=== PATIENT | female | born 1980 | race Caucasian/White ===

== ENCOUNTER → 2016-11-11 | Day surgery (SDC) | payer OTHER ==
[~2016-11-11] VITALS: Ht 165.1 cm; Wt 70.3 kg
[~2016-11-11] MED LIST: ACETAMINOPHEN 650 MG SUPP As Ordered ONE; ACETAMINOPHEN 650 MG SUPP PR ONE; BUPIVACAINE HCL 0.5% 30 ML VIAL As Ordered ONE; DOXY100C37 PO; GABA-283 PO; GABA600T PO; HYDROmorphone HCL 1 MG/ML SYRINGE (J1170) IV PRN; IBUP80TA PO; LIDOCAINE 2% INJ 100 MG/5 ML SDV (FOR ANES.) As Ordered ONE; LR 1,000 ML IV SCH; MIDAZOLAM INJ 2 MG/2 ML VIAL (J2250) As Ordered ONE; NORC1TAB4 PO; NS 1,000 ML IV SCH; ONDANSETRON 4MG/2ML VIAL (J2405) As Ordered ONE; ONDANSETRON 4MG/2ML VIAL (J2405) IV PRN; PERCOCET 5MG/325MG TAB PO PRN; PROPOFOL 200 MG/20 ML VIAL As Ordered ONE; ROCURONIUM BROMIDE 50 MG/5 ML VIAL/SYRINGE As Ordered ONE; SODIUM CHLORIDE 0.9% 1000 ML IV SCH; dexameTHASONE 4 MG/ML 1ML VIAL (J1100) As Ordered ONE; fentaNYL 100 MCG/2 ML INJECTION (J3010) IV PRN; fentaNYL 250 MCG/5 ML INJECTION (J3010) As Ordered ONE
[2016-11-11 09:21] LABS: MEAN CORPUSCULAR HEMOGLOBIN 30.6 pg (27.0-33.0); MEAN CORPUSCULAR HGB CONC 33.3 g/dl (32.0-36.5); MEAN CORPUSCULAR VOLUME 91.7 fl (80.0-96.0); RED CELL DISTRIBUTION WIDTH 12.3 % (11.5-14.5); WHITE BLOOD COUNT 11.2 K/mm3 (4.0-10.0)
[2016-11-11 09:41] LABS: ANION GAP 6 MEQ/L (8-16); BLOOD UREA NITROGEN 12 MG/DL (7-18); CALCIUM LEVEL 8.9 MG/DL (8.5-10.1); CARBON DIOXIDE LEVEL 30 MEQ/L (21-32); CHLORIDE LEVEL 103 MEQ/L (98-107); CREATININE FOR GFR 1.02 MG/DL (0.55-1.02); GLOMERULAR FILTRATION RATE > 60.0 (>60); GLUCOSE, FASTING 83 MG/DL (70-105); HCG, SERUM QUANTITATIVE < 1.0 MIU/ML; SODIUM LEVEL 139 MEQ/L (136-145)
[2016-11-11 12:33] VITALS: BP 126/79
--- NOTE | 2016-11-17 17:44 | RO ---
DATE OF PROCEDURE: 11/11/2016 PREOPERATIVE DIAGNOSIS: Satisfied parity, chronic pelvic pain. POSTOPERATIVE DIAGNOSIS: Satisfied parity, chronic pelvic pain. OPERATION PROPOSED: Operative laparoscopy, bilateral salpingectomy. OPERATION PERFORMED: Diagnostic laparoscopy, bilateral salpingectomy. SURGEON: Dr. Austin Latham PROCESSING ARCHIVIST: Ashlyn ANESTHESIA: General plus local anesthetic for intraperitoneal procedures. ESTIMATED BLOOD LOSS: Less than 10 mL. DESCRIPTION OF PROCEDURE: Under adequate anesthesia, prepped and draped in a lithotomy position, Araya catheter, bladder draining clear urine, acetaminophen suppository 1300 mg per rectum, sequentials on board, no antibiotics required. Time-out performed. Weighted speculum in vagina, single tooth tenaculum on the anterior lip of the cervix. There was some degree of cervical uterine prolapse. No evidence of cystourethral, rectal or enterocele. Reprepping and draping small subumbilical incision was made. Direct entry into the abdomen. No evidence of perforation, hemorrhage or bleeding. CO2 gas was attached. Panoramic review. The right upper quadrant was normal, left upper quadrant was normal. The uterus was midline, anteverted, anteflexed. Anterior cul-de-sac at the bladder area a few staining areas of peritoneum and in the posterior cul-de-sac a few staining areas of the peritoneum, suggesting possible very early stage of endometriosis. There was one clear drop spot of endometriosis. The rest of the examination was unremarkable, the tubes were normal. The ovaries were normal. The appendiceal site was normal. The cul-de-sac was clear. Everything was mobile. A 5 mm port was on the right side, a 5 mm port on the left side. Bilateral salpingectomy was performed with the NovaSure. Each tube was sent to pathology under separate cover. Good hemostasis was acquired. 250 mL of normal saline were left in the abdomen, deflating to 4 mm of pressure. The two side ports were removed, the mainstem port was removed. No evidence of active bleeding. The patient had #3-0 Vicryl stitches in all three sites. The Araya catheter and the instruments in the uterus were removed. Our recommendation is either doing nothing or the possibility of pelvic diathermy with PT, or a short course of 3 months with Depo Lupron. This will be discussed with the patient at postoperative check. Copy To: Tash Hurst OB
== END ==
LOC: M SDC 08:53
PROVIDERS: ATTEND Obstetrics & Gynecology
DX: Z30.2 Encounter for sterilization (principal); M51.9 Unspecified thoracic, thoracolumbar and lumbosacral intervertebral disc disorder; M54.5 Low back pain; Z79.899 Other long term (current) drug therapy
CPT/HCPCS: 36415; 58670; 80048; 84702; 85027; 88302; J1100; J2250; J2405; J3010

== ENCOUNTER 2017-01-12 08:06 | Emergency (ER) | payer OTHER ==
[~2017-01-12] VITALS: Ht 165.1 cm; Wt 65.9 kg
[~2017-01-12 08:06] MED LIST changes: -ACETAMINOPHEN 650 MG SUPP As Ordered ONE; -ACETAMINOPHEN 650 MG SUPP PR ONE; -BUPIVACAINE HCL 0.5% 30 ML VIAL As Ordered ONE; -DOXY100C37 PO; -GABA-283 PO; -HYDROmorphone HCL 1 MG/ML SYRINGE (J1170) IV PRN; -IBUP80TA PO; -LIDOCAINE 2% INJ 100 MG/5 ML SDV (FOR ANES.) As Ordered ONE; -LR 1,000 ML IV SCH; -MIDAZOLAM INJ 2 MG/2 ML VIAL (J2250) As Ordered ONE; -NORC1TAB4 PO; -NS 1,000 ML IV SCH; -ONDANSETRON 4MG/2ML VIAL (J2405) As Ordered ONE; -ONDANSETRON 4MG/2ML VIAL (J2405) IV PRN; -PERCOCET 5MG/325MG TAB PO PRN; -PROPOFOL 200 MG/20 ML VIAL As Ordered ONE; -ROCURONIUM BROMIDE 50 MG/5 ML VIAL/SYRINGE As Ordered ONE; -SODIUM CHLORIDE 0.9% 1000 ML IV SCH; -dexameTHASONE 4 MG/ML 1ML VIAL (J1100) As Ordered ONE; -fentaNYL 100 MCG/2 ML INJECTION (J3010) IV PRN; -fentaNYL 250 MCG/5 ML INJECTION (J3010) As Ordered ONE
[2017-01-12] MEDS ORDERED: GABA-283 PO (08:12)
[2017-01-12] MEDS ORDERED: ACETAMINOPHEN 325 MG TAB PO ONE (08:30)
[2017-01-12] MEDS ORDERED: NS 1,000 ML IV ONE (08:30)
[2017-01-12] MEDS ORDERED: KETOROLAC 30 MG/ML VIAL (J1885) IV ONE (08:30)
[2017-01-12 08:45] LABS: BASO # 0.1 K/mm3 (0.0-0.2); BASO % 0.4 % (0.0-1.0); EOS # 0.3 K/mm3 (0.0-0.50); LARGE UNSTAINED CELL # 0.3 K/mm3 (0.0-0.4); LARGE UNSTAINED CELL % 1.9 % (0.0-4.0); LYMPH # 1.9 K/mm3 (1.5-4.5); LYMPH % 9.7 % (24.0-44.0); MEAN CORPUSCULAR HEMOGLOBIN 30.5 pg (27.0-33.0); MEAN CORPUSCULAR HGB CONC 33.9 g/dl (32.0-36.5); MEAN CORPUSCULAR VOLUME 89.9 fl (80.0-96.0); MONO # 0.8 K/mm3 (0.0-0.8); MONO % 4.8 % (0.0-5.0); NEUTROPHILS # 13.5 K/mm3 (1.8-7.7); NEUTROPHILS % 81.3 % (36.0-66.0); PLATELET COUNT, AUTOMATED 226 k/mm3 (150-450); RED CELL DISTRIBUTION WIDTH 12.7 % (11.5-14.5); WHITE BLOOD COUNT 16.6 K/mm3 (4.0-10.0)
[2017-01-12 09:03] LABS: ANION GAP 9 MEQ/L (8-16); BLOOD UREA NITROGEN 6 MG/DL (7-18); CALCIUM LEVEL 8.6 MG/DL (8.5-10.1); CARBON DIOXIDE LEVEL 24 MEQ/L (21-32); CHLORIDE LEVEL 104 MEQ/L (98-107); CREATININE FOR GFR 0.85 MG/DL (0.55-1.02); GLOMERULAR FILTRATION RATE > 60.0 (>60); GLUCOSE, FASTING 101 MG/DL (70-105); POTASSIUM SERUM 3.5 MEQ/L (3.5-5.1); SODIUM LEVEL 137 MEQ/L (136-145)
--- NOTE | 2017-01-12 09:11 | REP ---
Chest x-ray: Two views. History: Dyspnea and cough. Comparison study: September 09, 2016. Findings: There is a fairly large infiltrate in the right middle lobe. There is some consolidation in the left lower lobe as well. Findings are compatible with bilateral pneumonia. Pleural angles are sharp. Heart is not enlarged. No bony abnormalities seen. Impression: Right middle lobe and left lower lobe infiltrates consistent with pneumonia. Signed by Odin Yeh MD 01/12/2017 09:55 A
[2017-01-12] MEDS ORDERED: cefTRIAXone SOD 1 GM in D5W MINI-BAG PLUS 50 ML IV ONE (10:00)
[2017-01-12] MEDS ORDERED: IBUP80TA PO (10:13)
[2017-01-12] MEDS ORDERED: DOXY100C37 PO (10:14)
[2017-01-12] MEDS ORDERED: NORC1TAB4 PO (10:29)
[2017-01-12 10:53] VITALS: BP 106/52
--- NOTE | 2017-01-13 08:31 | ECGEPIP ---
Stationary ECG Study [facility] - ED Test Date: 2017-01-12 Pat Name: JORGE JONES Department: Room: - Gender: F Graduate Intern: kike : [id number] Requested By: Meenu Winters Order Number: [id number] Reading MD: Juan Mandel Measurements Intervals [place] Rate: 87 P: 6 WV: 179 QRS: 13 QRSD: 100 T: 4 QT: 355 QTc: 429 Interpretive Statements SINUS RHYTHM NSTTW ABNORMALITIES NO PRIORS Electronically Signed On 01-13-2017 8:31:26 EDT by Juan Mandel
== END 2017-01-12 10:53 | disposition home or self-care (01) ==
LOC: M ED 08:06
DX: J18.9 Pneumonia, unspecified organism (principal); F17.210 Nicotine dependence, cigarettes, uncomplicated; Z79.899 Other long term (current) drug therapy
CPT/HCPCS: 36415; 71020; 80048; 83605; 85025; 87040; 93005; 96361; 96374; 99284; J0696; J1885